=== PATIENT | male | born 1960 | race Caucasian/White ===

== ENCOUNTER 2019-01-21 09:13 | Day surgery (SDC) | payer OTHER ==
--- NOTE | 2019-01-20 14:48 | GHP ---
[f rep st] PREOP HISTORY AND PHYSICAL DATE OF ADMISSION: 01/21/2019 DATE OF SURGERY: 01/21/2019 CHIEF COMPLAINT: Left forefoot pain. HISTORY OF PRESENT ILLNESS: Akil is a 58-year-old with a history of progressive left 1st MTP pain . His pain has been worsening limiting his activity level. MEDICATIONS: Irbesartan, Kapspargo Sprinkle. ALLERGIES: He is allergic to Wellbutrin. SOCIAL HISTORY: Negative for tobacco use. PAST SURGICAL HISTORY: Positive for cardiac catheterization. PAST MEDICAL HISTORY: Positive for coronary artery disease, GERD and hypertension. PHYSICAL EXAMINATION: GENERAL: He is alert and oriented x3 and overall appearing in good health. H EENT: Head normocephalic. Pupils equal, round, and reactive to light. Extraocular movements intact . NECK: Supple. No JVD or lymphadenopathy. CHEST: Clear to auscultation. HEART: Regular rate a nd rhythm. ABDOMEN: Soft, nontender, nondistended. No organomegaly. GENITAL: Deferred. RECTAL: Deferred. BREAST: Deferred. EXTREMITY: Reveals bony prominence, tenderness, and limited motion a t his left 1st MTP joint. ASSESSMENT: Left advanced hallux rigidus. PLAN: The patient is scheduled to undergo a 1st MTP cheilectomy and debridement and implant hemiarth roplasty. /[id number]/MODL
[2019-01-21] MEDS ORDERED: LR 1,000 ML IV ONE (09:26)
[2019-01-21] MEDS ORDERED: LIDOCAINE 1% 300 MG/30 ML SDV ONE (09:47)
[2019-01-21] MEDS ORDERED: BUPIVACAINE 0.5% 30 ML SDV ONE (09:47)
[2019-01-21] MEDS ORDERED: MIDAZOLAM 2 MG/2 ML VIAL IVP ONE (10:45)
--- NOTE | 2019-01-21 10:47 | PDANEPAE ---
ANE History of Present Illness 58 yo for l mtp cheilectomy ANE Past Medical History - Cardiovascular History Hx Hypertension: Yes Hx Arrhythmias: No Hx Chest Pain: No Hx Coronary Artery / Peripheral Vascular Disease: Yes Hx CHF / Valvular Disease: No Hx Palpitations: Yes Cardiovascular History Comment: htn. infrequent palpitations- resolved with medications. cad with stents x3, placed in . 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 - Pulmonary History Hx COPD: No Hx Asthma/Reactive Airway Disease: No Hx Recent Upper Respiratory Infection: No Hx Oxygen in Use at Home: No Hx Sleep Apnea: No Sleep Apnea Screening Result - Last Documented: Positive Pulmonary History Comment: chanelle triggers - Neurologic History Hx Cerebrovascular Accident: No Hx Seizures: No Hx Dementia: No - Endocrine History Hx Diabetes: No - Renal History Hx Renal Disorders: No - Liver History Hx Hepatic Disorders: No - Neurological & Psychiatric Hx Hx Neurological and Psychiatric Disorders: No - Cancer History Hx Cancer: No - Congenital Disorder History Hx Congenital Disorders: No - GI History Hx Gastrointestinal Disorders: Yes Gastrointestinal History Comment: hx of reflux- no symptoms recently since stopping alcohol - Other Health History Other Health History: wears contacts - Chronic Pain History Chronic Pain: No - Surgical History Prior Surgeries: skin graft. hydrocele. tonsillectomy. cardiac stents x3. wisdom teeth. cyst removed from wrist ANE Review of Systems Review of Systems: - Exercise capacity METS (RN): 4 METS ANE Patient History - Allergies Allergies/Adverse Reactions: bupropion [From Wellbutrin] Allergy (Verified 01/20/19 16:50) Hives - Home Medications Home medications: home medication list seen and reviewed Home Medications: Aspirin 81mg (*) 01/20/19 [Last Taken 01/20/19] Atorvastatin Calcium 01/20/19 [Last Taken 1 Day Ago ~01/20/19] Herbals/Supplements -Info Only 01/20/19 [Last Taken 01/20/19] Irbesartan 01/20/19 [Last Taken 1 Day Ago ~01/20/19] Metoprolol Succinate 01/20/19 [Last Taken 1 Day Ago ~01/20/19] - NPO status NPO Status: no food or drink >8 hours NPO Since - Liquids (Date): 01/20/19 NPO Since - Liquids (Time): 21:00 NPO Since - Solids (Date): 01/20/19 NPO Since - Solids (Time): 20:00 - Anes Hx Anes Hx: no prior problems - Smoking Hx Smoking Status: Former smoker - Family Anes Hx Family Hx Anesthesia Complications: none ANE Labs/Vital Signs - Vital Signs Blood Pressure: 145/94 Heart Rate: 71 Respiratory Rate: 13 O2 Sat (%): 95 Height: 5 ft 8 in Weight: 74.843 kg ANE Physical Exam - Airway Neck exam: FROM Mallampati Score: Class 2 Mouth exam: normal dental/mouth exam - Pulmonary Pulmonary: no respiratory distress - Cardiovascular Cardiovascular: regular rate and rhythym - ASA Status ASA Status: III ANE Anesthesia Plan Anesthesia Plan: GA w LMA
[2019-01-21] MEDS ORDERED: fentaNYL 100 MCG/2 ML INJ ONE ×2 (11:29→11:30)
[2019-01-21] MEDS ORDERED: PROPOFOL/EMULSION 500 MG/50 ML BOTTLE IV ONE (11:30)
[2019-01-21] MEDS ORDERED: ceFAZolin 2 GM/DEXTROSE 100 ML IV ONE (11:36)
[2019-01-21] MEDS ORDERED: CEFAZOLIN 2 GM/DEXTROSE/100 ML BAG IV ONE (11:37)
--- NOTE | 2019-01-21 11:38 | POSTOPPROG ---
Post Op Note Date of Operation: 01/21/19 Surgeon: Renny Willson Anesthesia: LMA Pre-op Diagnosis: L hallux rigidus Post-op Diagnosis: same Procedure: L 1st MTP Implant hemiarthroplasty Inf/Abcess present in the surg proc area at time of surgery?: No EBL: Minimal
[2019-01-21] MEDS ORDERED: ONDANSETRON 4 MG/2 ML VIAL ONE (11:50)
[2019-01-21] MEDS ORDERED: DEXAMETHASONE 4 MG/ML VIAL ONE (11:51)
[2019-01-21] MEDS ORDERED: ONDANSETRON 4 MG/2 ML VIAL IVP PRN (12:15)
[2019-01-21] MEDS ORDERED: oxyCODONE IR 5 MG TAB PO PRN (12:15)
[2019-01-21] MEDS ORDERED: NALOXONE HCL 0.4 MG/ML INJ IVP PRN (12:15)
[2019-01-21] MEDS ORDERED: fentaNYL 100 MCG/2 ML INJ IVP PRN (12:15)
--- NOTE | 2019-01-21 13:17 | GOP ---
[f rep st] OPERATIVE REPORT DATE OF OPERATION: 01/21/2019 SURGEON: Renny Willson MD ANESTHESIA: General by LMA. PREOPERATIVE DIAGNOSIS: Left hallux rigidus. POSTOPERATIVE DIAGNOSIS: Left hallux rigidus. PROCEDURE PERFORMED: 1. Left first metatarsophalangeal cheilectomy and debridement. 2. Left first metatarsophalangeal implant hemiarthroplasty (Cartiva). 3. Intraoperative use of fluoroscopy. FINDINGS: ESTIMATED BLOOD LOSS: Minimal. INDICATIONS: The patient is a 58-year-old with history of progressive left 1st MTP pain. Clinically and radiographically, he is noted to have advanced hallux rigidus. Based on his persistence of symp toms, refractory nonoperative treatment and is interested in pursuing operative treatment. From an o perative standpoint, options including arthrodesis and implant hemiarthroplasty were discussed with a nticipated risks and benefits of both. The patient elected to pursue implant hemiarthroplasty. The patient acknowledged he understood the potential risks of the operation including, but not limited to bleeding, infection, neurovascular damage, loss of limb or limb function, implant failure necessitat ing revision, removal or arthrodesis, pain or limitations despite operative treatment and anesthetic risks. He acknowledged he understood the potential risks, planned procedure, postoperative plan well and had all questions answered prior to surgery. He gave his consent for the operative procedure. DESCRIPTION OF PROCEDURE: The patient is brought to the operating room after IV antibiotics were adm inistered. He was placed in a supine position where general anesthetic was administered. A tourniqu et was placed on his left calf. Bump underneath the left hip and shoulder, and left lower leg was pr epped and draped in standard sterile fashion. After marking the incision, Neftaly wrap exsanguination, t ourniquet was inflated to 250. A longitudinal incision was made along the dorsal aspect of the first MTP joint. Skin and subcutaneous tissue were sharply incised. Sharp dissection was carried adjacen t to the extensor hallucis longus tendon down through the joint capsule. The capsule was longitudina lly split and reflected medially and laterally. The bony prominence on the dorsal, medial and latera l aspect of the metatarsal head and proximal phalanx were removed with a saw and rongeur. Full-thick ness cartilage wear was noted on the dorsal half of the metatarsal head. The guide pin from the Cart meenakshi implant was placed in the central aspect of the metatarsal head. The guide pin position was chec ked fluoroscopically and felt to be optimal. Based on intraoperative templating, a size 10 mm implan t was felt to be optimal. A coring reamer was utilized to create a trough for the implant. The impl ant was impacted into place, remaining approximately 3 mm proud. Prior to implant placement, the magan ntar capsule was freed both manually and with a [place] elevator. The toe was taken through range of m otion. Full range of motion was obtained without any impingement. Attention was directed towards closure. The capsule was loosely approximated with 2-0 Vicryl suture in interrupted fashion. Subcutaneous tissue closed with 3-0 Vicryl suture in interrupted fashion. S kin closed with 4-0 nylon interrupted sutures. 0.5% Marcaine without epinephrine was injected in the wound sites. The wounds were dressed with sterile Adaptic, 4 x 4, Kerlix, and Coban. The patient to lerated the procedure well and was taken to the recovery room, extubated in stable condition postoper atively. All sponge, needle, and instrument counts were reported as being correct. DRAINS: None. COMPLICATIONS: None. PLAN: The patient is to be discharged home, weightbearing as tolerated in a postop shoe. /[id number]/MODL
--- NOTE | 2019-01-21 13:57 | POSTANESTH ---
Post Anesthetic Evaluation Cardiovascular Status: Normal, Stable Respiratory Status: Normal, Stable Level of Consciousness/Mental Status: Can Participate in Eval Pain Control: Adequate, Prn Tx Ordered Nausea/Vomiting Control: Adequate, Prn Tx Ordered Complications Possibly Related to Anesthesia: None Noted
[2019-01-21] MEDS ORDERED: oxyCODONE IR 5 MG TAB ONE (14:07)
[2019-01-21 14:52] VITALS: BP 126/86
== END 2019-01-21 14:50 | disposition home or self-care (01) ==
LOC: FSGY 09:13
PROVIDERS: ATTEND Orthopaedic Surgery Foot and Ankle Surgery
PROC: 0SRN0JZ Replacement of Left Metatarsal-Phalangeal Joint with Synthetic Substitute, Open Approach (ICD-10-PCS; principal; 2019-01-21 14:15)
DX: M20.22 Hallux rigidus, left foot (principal); I25.10 Atherosclerotic heart disease of native coronary artery without angina pectoris; K21.9 Gastro-esophageal reflux disease without esophagitis; I10 Essential (primary) hypertension; E78.00 Pure hypercholesterolemia, unspecified
CPT/HCPCS: J0690; J1100; J2250; J2405; J2704; J3010